=== PATIENT | female | born 1955 | race Caucasian/White ===

== ENCOUNTER → 2017-09-04 | Outpatient (CLI) | payer MEDICARE, OTHER ==
[~2017-09-04] MED LIST: ? BP MED; ALBU90OI INH; AMOX500 PO; ATEN100 PO; DOXY100 PO; HYDACE5 PO; HYDACE5325 PO; HYDCHL12.5; HYDCHL12.5 PO; IBUHYD; IBUHYD PO; IBUP200; LISI10; LISI10 PO; LISI20 PO; LISI5 PO; META800 PO; METO100ER; METO100ER PO; Norco 7.5-3251 EACH PO; OMEP20ER PO; PRED20 PO; Percocet 5-3251 EACH PO; RXHYDACE PO; TIZANIDINE HCL4 MG PO
[2017-09-04 11:31] LABS: Source, Urine Clean Catch
[2017-09-04 12:23] LABS: Appearance, Urine Turbid (Clear); Bilirubin, Urine Neg (Neg); Blood, Urine 5+ (Neg); Color, Urine Yellow (P-Yellow); Glucose Qualitative, Urine Neg (Neg); Ketones, Urine Neg (Neg); Leukocyte Esterase, Urine 3+ (Neg); Nitrite, Urine Pos (Neg); Protein, Urine 3+ (Neg); Urobilinogen, Urine NORM (Normal)
[2017-09-04 12:55] LABS: Amorphous Light (0-Heavy); Bacteria Many /hpf; Squamous Epithelial Cells Few /hpf (Few)
== END | disposition home or self-care (01) ==
LOC: EDSTATUS 09:18 → LAB RH 11:30
DX: N39.0 Urinary tract infection, site not specified (principal); R31.9 Hematuria, unspecified
CPT/HCPCS: 81001; 87077; 87086; 87186

== ENCOUNTER → 2017-09-26 | Outpatient (CLI) | payer MEDICARE, OTHER ==
[2017-09-27 10:54] LABS: Candida species (DNA Probe) Negative (NEGATIVE); G. vaginalis (DNA Probe) Negative (NEGATIVE); T. vaginalis (DNA Probe) Negative (NEGATIVE)
== END | disposition home or self-care (01) ==
LOC: LAB 18:35 → LAB SHORT 18:35
PROVIDERS: Obstetrics & Gynecology
DX: N76.0 Acute vaginitis (principal)
CPT/HCPCS: 87480; 87510; 87660

== ENCOUNTER → 2017-10-19 | Outpatient (CLI) | payer MEDICARE, OTHER ==
[2017-10-19 19:40] LABS: Source, Urine Catheter
[2017-10-19 19:48] LABS: Bilirubin, Urine Neg (Neg); Blood, Urine 5+ (Neg); Glucose Qualitative, Urine Neg (Neg); Ketones, Urine Neg (Neg); Leukocyte Esterase, Urine 2+ (Neg); Nitrite, Urine Pos (Neg); Protein, Urine 1+ (Neg); Specific Gravity, Urine 1.025 (1.003-1.022); Urobilinogen, Urine NORM (Normal)
[2017-10-19 19:59] LABS: Appearance, Urine Hazy (Clear); Color, Urine Yellow (P-Yellow)
[2017-10-19 20:00] LABS: Squamous Epithelial Cells Few /hpf (Few)
[2017-10-19 20:01] LABS: Bacteria Many /hpf; Mucus Light (0-Heavy)
== END | disposition home or self-care (01) ==
LOC: EDSTATUS 14:50 → LAB RH 18:45
DX: N39.0 Urinary tract infection, site not specified (principal)
CPT/HCPCS: 81001; 87077; 87086; 87186

== ENCOUNTER 2018-04-27 17:58 | Emergency (ER) | payer MEDICARE, OTHER ==
[~2018-04-27] VITALS: Ht 167.6 cm; Wt 90.7 kg
[2018-04-27] MEDS ORDERED: Ultram50 MG PO (19:05)
== END 2018-04-27 19:30 | disposition home or self-care (01) ==
LOC: ER 17:58
DX: S93.401A Sprain of unspecified ligament of right ankle, initial encounter (principal); M25.561 Pain in right knee; M79.671 Pain in right foot; I10 Essential (primary) hypertension; Z86.73 Personal history of transient ischemic attack (TIA), and cerebral infarction without residual deficits; Z87.891 Personal history of nicotine dependence; X58.XXXA Exposure to other specified factors, initial encounter
CPT/HCPCS: 73562-RT; 73610; 73630; 99283-25

== ENCOUNTER → 2018-06-03 | Outpatient (CLI) | payer MEDICARE, OTHER ==
[~2018-06-03] MED LIST changes: +Ultram50 MG PO
[2018-06-03 15:50] LABS: Bilirubin, Urine Neg (Neg); Blood, Urine 1+ (Neg); Glucose Qualitative, Urine Neg (Neg); Ketones, Urine Neg (Neg); Leukocyte Esterase, Urine 3+ (Neg); Nitrite, Urine Neg (Neg); Protein, Urine 1+ (Neg); Urobilinogen, Urine NORM (Normal)
[2018-06-03 16:03] LABS: Appearance, Urine Cloudy (Clear); Color, Urine Yellow (P-Yellow)
[2018-06-03 16:04] LABS: Squamous Epithelial Cells Mod /hpf (Few); White Blood Cells, Urine 25-50 /hpf (0-5)
[2018-06-03 16:06] LABS: Amorphous Light (0-Heavy); Bacteria Mod /hpf; Red Blood Cells, Urine 0-2 /hpf (0-2)
== END | disposition home or self-care (01) ==
LOC: LAB 15:08 → LAB SHORT 15:08
DX: N39.0 Urinary tract infection, site not specified (principal)
CPT/HCPCS: 81001

== ENCOUNTER 2018-06-15 11:58 | Emergency (ER) | payer MEDICARE, OTHER ==
[~2018-06-15] VITALS: Ht 170.2 cm; Wt 95.2 kg
== END 2018-06-15 14:38 | disposition home or self-care (01) ==
LOC: ER 11:58
DX: S51.011A Laceration without foreign body of right elbow, initial encounter (principal); I10 Essential (primary) hypertension; Z88.5 Allergy status to narcotic agent; Z88.8 Allergy status to other drugs, medicaments and biological substances; Z79.899 Other long term (current) drug therapy; Z86.73 Personal history of transient ischemic attack (TIA), and cerebral infarction without residual deficits; Z87.891 Personal history of nicotine dependence; X58.XXXA Exposure to other specified factors, initial encounter
CPT/HCPCS: 12004; 99283-25

== ENCOUNTER 2018-10-04 18:52 | Observation (INO) | payer MEDICARE, OTHER ==
[~2018-10-04] VITALS: Ht 170.2 cm; Wt 95.2 kg
[2018-10-04 19:19] LABS: Source, Urine Catheter
[2018-10-04 19:22] LABS: Bilirubin, Urine Neg (Neg); Blood, Urine Neg (Neg); Glucose Qualitative, Urine Neg (Neg); Ketones, Urine 1+ (Neg); Leukocyte Esterase, Urine 2+ (Neg); Nitrite, Urine Pos (Neg); Protein, Urine Neg (Neg); Urobilinogen, Urine NORM (Normal)
[2018-10-04 19:31] LABS: Appearance, Urine Cloudy (Clear); Color, Urine Yellow (P-Yellow)
[2018-10-04 19:32] LABS: Bacteria Many /hpf; Red Blood Cells, Urine 0-2 /hpf (0-2); Squamous Epithelial Cells Mod /hpf (Few)
[2018-10-04 20:45] LABS: BASOPHILS ABSOLUTE AUTO 0.04 K/mm3 (0.00-0.23); BASOPHILS PERCENT AUTO 0 % (0-2); EOSINOPHILS ABSOLUTE AUTO 0.16 K/mm3 (0.00-0.68); EOSINOPHILS PERCENT AUTO 1 % (0-6); Hematocrit 46.7 % (33.0-51.0); Hemoglobin 14.9 g/dL (11.5-16.0); IMMATURE GRAN ABSOLUTE AUTO 0.06 K/mm3 (0.00-0.10); IMMATURE GRAN PERCENT AUTO 1 % (0-1); LYMPHOCYTES ABSOLUTE AUTO 0.53 K/mm3 (0.84-5.20); LYMPHOCYTES PERCENT AUTO 5 % (21-46); MONOCYTES ABSOLUTE AUTO 0.52 K/mm3 (0.16-1.47); MONOCYTES PERCENT AUTO 4 % (4-13); Mean Corpuscular HGB 30.5 pg (26.0-34.0); Mean Corpuscular HGB Conc 31.9 g/dL (31.5-36.5); Mean Corpuscular Volume 96 fL (80-100); Mean Platelet Volume 10.4 fL (9.1-12.4); NEUTROPHILS ABSOLUTE AUTO 10.47 K/mm3 (1.96-9.15); NEUTROPHILS PERCENT AUTO 89 % (41-73); Platelet Count 171 K/mm3 (150-400); RDW Coefficient Variation 12.6 % (11.7-14.2); RDW Standard Deviation 44.8 fL (35.1-46.3); Red Blood Cell Count 4.89 M/mm3 (3.80-5.20); White Blood Cell Count 11.78 K/mm3 (4.00-11.30)
[2018-10-04 21:04] LABS: Alanine Aminotransfer (ALT/SGP 48 U/L (12-78); Albumin, Blood 3.4 g/dL (3.4-5.0); Albumin/Globulin Ratio 1.1 (0.8-1.8); Alk Phos 150 U/L (50-136); Anion Gap 5 mmol/L (6-16); Aspartate Aminotrans (AST/SGOT 77 U/L (12-37); Blood Urea Nitrogen 11 mg/dL (8-24); Bun/Creatinine Ratio 14.6 (12.0-20.0); CO2, Blood 30 mmol/L (21-32); Calcium, Blood 9.2 mg/dL (8.5-10.1); Chloride, Blood 106 mmol/L (98-108); Creatinine, Blood 0.75 mg/dL (0.40-1.00); Globulin, Blood 3.2 g/dL (2.2-4.0); Glomerular Filtration Rate >60 (60-); Glucose, Blood 120 mg/dL (70-99); Potassium, Blood 4.2 mmol/L (3.5-5.5); Sodium, Blood 141 mmol/L (136-145); Total Protein, Blood 6.6 g/dL (6.4-8.2)
[2018-10-04] MEDS ORDERED: ATEN50 PO (22:40)
[2018-10-04] MEDS ORDERED: Aspirin EC81 MG PO (22:40)
[2018-10-04] MEDS ORDERED: FAMO20 PO (22:41)
[2018-10-04] MEDS ORDERED: ESTRADIOL (22:41)
[2018-10-04] MEDS ORDERED: Prozac20 MG (22:42)
[2018-10-04] MEDS ORDERED: Zocor20 MG (22:43)
[2018-10-04] MEDS ORDERED: MAGNESIUM400 M1 PO (22:43)
[2018-10-04] MEDS ORDERED: HYDR1TAB94 (22:43)
[2018-10-05 05:19] LABS: BASOPHILS ABSOLUTE AUTO 0.04 K/mm3 (0.00-0.23); BASOPHILS PERCENT AUTO 0 % (0-2); EOSINOPHILS ABSOLUTE AUTO 0.03 K/mm3 (0.00-0.68); EOSINOPHILS PERCENT AUTO 0 % (0-6); Hematocrit 40.6 % (33.0-51.0); Hemoglobin 13.1 g/dL (11.5-16.0); IMMATURE GRAN ABSOLUTE AUTO 0.03 K/mm3 (0.00-0.10); IMMATURE GRAN PERCENT AUTO 0 % (0-1); LYMPHOCYTES ABSOLUTE AUTO 0.92 K/mm3 (0.84-5.20); LYMPHOCYTES PERCENT AUTO 10 % (21-46); MONOCYTES PERCENT AUTO 6 % (4-13); Mean Corpuscular HGB 30.3 pg (26.0-34.0); Mean Corpuscular HGB Conc 32.3 g/dL (31.5-36.5); Mean Corpuscular Volume 94 fL (80-100); Mean Platelet Volume 9.9 fL (9.1-12.4); NEUTROPHILS ABSOLUTE AUTO 8.02 K/mm3 (1.96-9.15); NEUTROPHILS PERCENT AUTO 83 % (41-73); Platelet Count 159 K/mm3 (150-400); RDW Coefficient Variation 12.7 % (11.7-14.2); RDW Standard Deviation 43.7 fL (35.1-46.3); Red Blood Cell Count 4.33 M/mm3 (3.80-5.20); White Blood Cell Count 9.64 K/mm3 (4.00-11.30)
--- NOTE | 2018-10-05 05:54 | NUR ---
SHIFT SUMMARY: PATIENT ARRIVED TO THE FLOOR VIA [facility], WE ASSISTED WITH TRANSFER TO THE BED. IV WAS NOTED TO BE LOOSE AND HANGING OUT. TRIED TO FLUSH BUT IT CAUSED PAIN. THEREFORE RESTARTED THE IV A LITTLE ABOVE THE OTHER AREA IN THE LEFT SHOULDER. SHE CAME INTO THE ER FOR NAUSEA AND VOMITING, IT TURNED OUT SHE HAD AN TUBAL ABCESS. ADMITTED FOR THE ABCESS AND POSSIBLY FOR REMOVAL OF THIS. SHE IS AOX3 PLEASANT AND COOPERATIVE, HAS DYSPHAGIA AND IS DIFFICULT TO UNDERSTAND FROM A PREVIOUS STROKE. SHE HAS DIFFICULTY GETTING OUT WHAT SHE HAS TO SAY. BUT IS ALERT AND ORIENTED. SHE COMPLAINED OF PAIN ON HER RIGHT SIDE. AFTER NEW IV WAS STARTED GAVE HER 25 OF FENTANYL PER DOCTOR WILBERT ORDERS. THIS GOT RID OF HER PAIN, IV WAS STARTED WITH ANTIBOTICS AND FLUIDS. SHE SLEPT THE REST OF THE NIGHT, SEE ASSESSEMENT FOR DETAIL. WILL REPORT TO DAY SHIFT RN.
[2018-10-05 06:04] LABS: Alanine Aminotransfer (ALT/SGP 34 U/L (12-78); Albumin, Blood 2.6 g/dL (3.4-5.0); Albumin/Globulin Ratio 0.8 (0.8-1.8); Alk Phos 122 U/L (50-136); Anion Gap 6 mmol/L (6-16); Aspartate Aminotrans (AST/SGOT 55 U/L (12-37); Bilirubin, Total 0.9 mg/dL (0.1-1.0); Blood Urea Nitrogen 11 mg/dL (8-24); Bun/Creatinine Ratio 16.5 (12.0-20.0); CO2, Blood 26 mmol/L (21-32); Chloride, Blood 109 mmol/L (98-108); Creatinine, Blood 0.67 mg/dL (0.40-1.00); Globulin, Blood 3.1 g/dL (2.2-4.0); Glomerular Filtration Rate >60 (60-); Glucose, Blood 97 mg/dL (70-99); Potassium, Blood 3.4 mmol/L (3.5-5.5); Sodium, Blood 141 mmol/L (136-145); Total Protein, Blood 5.7 g/dL (6.4-8.2)
[2018-10-05] MEDS ORDERED: IBUP600 PO (16:18)
[2018-10-05] MEDS ORDERED: Percocet 5-3251 EACH PO (16:18)
[2018-10-05] MEDS ORDERED: METR500 PO (16:19)
[2018-10-05] MEDS ORDERED: CEPH500 PO (16:19)
[2018-10-05] MEDS ORDERED: VITAMIN D5000 UNIT PO (16:21)
[2018-10-05] MEDS ORDERED: CALCIUM 600 +1 EA11 PO (16:22)
[2018-10-05] MEDS ORDERED: VITAMIN B-1100 MG PO (16:22)
--- NOTE | 2018-10-05 18:32 | NUR ---
DISCHARGE PT RETURNING TO [facility] VIA [facility]. ORDERS FAXED TO [facility] AND ARE ALSO BEING SENT WITH THE PT. HARD COPY SCRIPS FOR PERCOCETT, IBUPROFEN, KEFLEX AND FLAGYL ALSO SENT WITH PT. REVIEWED DISCHARGE INSTRUCTIONS, FOLLOW UP APPOINTMENTS AND MEDICATIONS WITH PT. PT INDICATED UNDERSTANDING BUT SHE IS ALSO VERY FORGETFUL. OUTPT PELVIC ULTRASOUND ORDER SENT TO [facility] FOR SCHEDULING.
--- NOTE | 2018-10-05 19:57 | NUR ---
10/05/181919 [facility] HERE FOR PICK-UP. PT HAS BELONGINGS AND TECH GIVEN PT DISCHARGE PAPERWORK. PT LEFT VIA W/C.
== END 2018-10-05 19:20 | disposition home or self-care (01) ==
LOC: ER 18:52 → MEDS 22:52
PROVIDERS: Emergency Medicine; ADMIT Obstetrics & Gynecology
DX: N39.0 Urinary tract infection, site not specified (principal); N83.8 Other noninflammatory disorders of ovary, fallopian tube and broad ligament; I10 Essential (primary) hypertension; Z86.73 Personal history of transient ischemic attack (TIA), and cerebral infarction without residual deficits; Z87.891 Personal history of nicotine dependence; Z88.5 Allergy status to narcotic agent; Z88.8 Allergy status to other drugs, medicaments and biological substances; Z79.82 Long term (current) use of aspirin; Z79.899 Other long term (current) drug therapy
CPT/HCPCS: 36415; 71046; 74177; 80053; 81001; 83605; 83690; 85025; 86304; 87077; 87086; 87186; 93005; 93010; 96365-59; 96366; 96375-59; 99285-25; G0378; J0696; J2405; J3010; J7030; P9612; Q9967

== ENCOUNTER → 2019-08-10 | Outpatient (CLI) | payer MEDICARE, OTHER ==
[~2019-08-10] MED LIST changes: +ATEN50 PO; +Aspirin EC81 MG PO; +CALCIUM 600 +1 EA11 PO; +CEPH500 PO; +ESTRADIOL; +FAMO20 PO; +HYDR1TAB94; +IBUP600 PO; +MAGNESIUM400 M1 PO; +METR500 PO; +Prozac20 MG; +VITAMIN B-1100 MG PO; +VITAMIN D5000 UNIT PO; +Zocor20 MG
[2019-08-11 15:06] LABS: Source, Urine Clean Catch
[2019-08-11 16:19] LABS: Bilirubin, Urine Neg (Neg); Blood, Urine 1+ (Neg); Glucose Qualitative, Urine Neg (Neg); Ketones, Urine Neg (Neg); Leukocyte Esterase, Urine 3+ (Neg); Nitrite, Urine Pos (Neg); Protein, Urine Neg (Neg); Urobilinogen, Urine NORM (Normal)
[2019-08-11 16:28] LABS: Appearance, Urine Hazy (Clear); Color, Urine Yellow (P-Yellow)
[2019-08-11 16:30] LABS: Bacteria Many /hpf; Red Blood Cells, Urine 0-2 /hpf (0-2); Squamous Epithelial Cells Many /hpf (Few)
== END | disposition home or self-care (01) ==
LOC: LAB 14:25 → LAB SHORT 14:25
DX: N39.0 Urinary tract infection, site not specified (principal)
CPT/HCPCS: 81001; 87077; 87086; 87186

== ENCOUNTER 2020-04-05 09:55 | Emergency (ER) | payer MEDICARE, OTHER ==
[~2020-04-05] VITALS: Ht 170.2 cm; Wt 81.7 kg
[2020-04-05 11:55] LABS: Influenza A, PCR Negative (NEGATIVE); Influenza B, PCR Negative (NEGATIVE); Resp Syncytial Virus, PCR Negative (NEGATIVE); SARS-Cov-2 (COVID-19) PCR, MMC Negative (NEGATIVE)
[2020-04-05] MEDS ORDERED: NEURONTIN300 MG PO (13:55)
== END 2020-04-05 13:20 | disposition home or self-care (01) ==
LOC: ER 09:55
PROVIDERS: Emergency Medicine
DX: J02.9 Acute pharyngitis, unspecified (principal); I10 Essential (primary) hypertension; I69.351 Hemiplegia and hemiparesis following cerebral infarction affecting right dominant side; Z20.822 Contact with and (suspected) exposure to COVID-19; Z88.5 Allergy status to narcotic agent; Z88.8 Allergy status to other drugs, medicaments and biological substances; Z79.82 Long term (current) use of aspirin; Z79.899 Other long term (current) drug therapy
CPT/HCPCS: 0241U; 87081; 87430; 99284

== ENCOUNTER 2020-08-02 14:51 | Emergency (ER) | payer MEDICARE, OTHER ==
[~2020-08-02] VITALS: Ht 170.2 cm; Wt 113.4 kg
[~2020-08-02 14:51] MED LIST changes: +NEURONTIN300 MG PO
[2020-08-02] MEDS ORDERED: BUME2 PO (15:08)
[2020-08-02] MEDS ORDERED: Prozac40 MG PO (15:09)
[2020-08-02] MEDS ORDERED: Norco 5-325 Ta1 EACH PO (15:09)
[2020-08-02] MEDS ORDERED: GABA300 PO (15:09)
[2020-08-02] MEDS ORDERED: PAROEX473 ML (15:09)
[2020-08-02] MEDS ORDERED: ZOCOR20 MG PO (15:10)
[2020-08-02] MEDS ORDERED: MAGNESIUM OXID500 MG PO (15:10)
[2020-08-02] MEDS ORDERED: POTA10T PO (15:10)
[2020-08-02] MEDS ORDERED: VITB2 PO (15:11)
[2020-08-02] MEDS ORDERED: CALMOSEPTINE OINT (15:12)
[2020-08-02] MEDS ORDERED: NYAMYC15 G1 (15:12)
[2020-08-02] MEDS ORDERED: CLOTRIMAZOLE AF1524 TOP (16:32)
[2020-08-02] MEDS ORDERED: Diflucan150 MG PO (16:32)
== END 2020-08-02 17:29 | disposition home or self-care (01) ==
LOC: ER 14:51
DX: B37.2 Candidiasis of skin and nail (principal); I10 Essential (primary) hypertension; Z79.82 Long term (current) use of aspirin; Z79.899 Other long term (current) drug therapy; Z86.73 Personal history of transient ischemic attack (TIA), and cerebral infarction without residual deficits; Z87.891 Personal history of nicotine dependence
CPT/HCPCS: 99282; A9270

== ENCOUNTER 2020-10-02 14:50 | Emergency (ER) | payer MEDICARE, OTHER ==
[~2020-10-02] VITALS: Ht 170.2 cm; Wt 119.8 kg
[~2020-10-02 14:50] MED LIST changes: +BUME2 PO; +CALMOSEPTINE OINT; +CLOTRIMAZOLE AF1524 TOP; +Diflucan150 MG PO; +GABA300 PO; +MAGNESIUM OXID500 MG PO; +NYAMYC15 G1; +Norco 5-325 Ta1 EACH PO; +PAROEX473 ML; +POTA10T PO; +Prozac40 MG PO; +VITB2 PO; +ZOCOR20 MG PO
[2020-10-02] MEDS ORDERED: FAMO20 PO (15:01)
[2020-10-02 15:44] LABS: BASOPHILS ABSOLUTE AUTO 0.04 K/mm3 (0.00-0.23); BASOPHILS PERCENT AUTO 0 % (0-2); EOSINOPHILS ABSOLUTE AUTO 0.09 K/mm3 (0.00-0.68); EOSINOPHILS PERCENT AUTO 1 % (0-6); Hematocrit 40.3 % (33.0-51.0); Hemoglobin 13.7 g/dL (11.5-16.0); IMMATURE GRAN ABSOLUTE AUTO 0.06 K/mm3 (0.00-0.10); IMMATURE GRAN PERCENT AUTO 1 % (0-1); LYMPHOCYTES ABSOLUTE AUTO 1.04 K/mm3 (0.84-5.20); LYMPHOCYTES PERCENT AUTO 8 % (21-46); MONOCYTES PERCENT AUTO 5 % (4-13); Mean Corpuscular HGB 37.8 pg (26.0-34.0); Mean Corpuscular Volume 111 fL (80-100); Mean Platelet Volume 10.6 fL (9.1-12.4); NEUTROPHILS ABSOLUTE AUTO 11.34 K/mm3 (1.96-9.15); NEUTROPHILS PERCENT AUTO 86 % (41-73); Platelet Count 167 K/mm3 (150-400); RDW Coefficient Variation 15.4 % (11.7-14.2); RDW Standard Deviation 64.1 fL (35.1-46.3); Red Blood Cell Count 3.62 M/mm3 (3.80-5.20); White Blood Cell Count 13.17 K/mm3 (4.00-11.30)
[2020-10-02 15:58] LABS: Alanine Aminotransfer (ALT/SGP 171 U/L (12-78); Albumin, Blood 2.1 g/dL (3.4-5.0); Albumin/Globulin Ratio 0.7 (0.8-1.8); Alk Phos 202 U/L (50-136); Anion Gap 4 mmol/L (6-16); Aspartate Aminotrans (AST/SGOT 415 U/L (12-37); Bilirubin, Total 5.5 mg/dL (0.1-1.0); Blood Urea Nitrogen 12 mg/dL (8-24); Bun/Creatinine Ratio 18.4 (12.0-20.0); CO2, Blood 34 mmol/L (21-32); Calcium, Blood 8.6 mg/dL (8.5-10.1); Chloride, Blood 104 mmol/L (98-108); Creatinine, Blood 0.65 mg/dL (0.40-1.00); Globulin, Blood 3.2 g/dL (2.2-4.0); Glomerular Filtration Rate >60 (60-); Glucose, Blood 97 mg/dL (70-99); Potassium, Blood 2.9 mmol/L (3.5-5.5); Sodium, Blood 142 mmol/L (136-145); Total Protein, Blood 5.3 g/dL (6.4-8.2)
[2020-10-02 16:48] LABS: SARS-Cov-2 (COVID-19) PCR, MMC NEGATIVE (NEGATIVE)
[2020-10-02 17:14] LABS: Source, Urine Catheter
[2020-10-02 17:20] LABS: Appearance, Urine Clear (Clear); Blood, Urine 2+ (Neg); Color, Urine Yellow (P-Yellow); Glucose Qualitative, Urine Neg (Neg); Ketones, Urine 1+ (Neg); Leukocyte Esterase, Urine 2+ (Neg); Nitrite, Urine Pos (Neg); Protein, Urine 2+ (Neg); Specific Gravity, Urine 1.025 (1.003-1.022); Urobilinogen, Urine 4+ (Normal)
[2020-10-02 17:29] LABS: Bilirubin, Urine 3+ (Neg)
[2020-10-02 17:32] LABS: Bacteria Many /hpf; Squamous Epithelial Cells Mod /hpf (Few); White Blood Cells, Urine 50-100 /hpf (0-5)
[2020-10-02] MEDS ORDERED: CEPH500 PO (18:59)
[2020-10-02] MEDS ORDERED: METO10 PO (18:59)
== END 2020-10-02 19:29 | disposition home or self-care (01) ==
LOC: ER 14:50
PROVIDERS: Emergency Medicine
DX: N39.0 Urinary tract infection, site not specified (principal); K75.9 Inflammatory liver disease, unspecified; I10 Essential (primary) hypertension; Z88.5 Allergy status to narcotic agent; Z88.1 Allergy status to other antibiotic agents; Z88.8 Allergy status to other drugs, medicaments and biological substances; Z79.82 Long term (current) use of aspirin
CPT/HCPCS: 74176; 80053; 81001; 83690; 85025; 87077; 87086; 87186; 93005; 93010; 96372; 99284-25; J0696; J2270; J2765; P9612; U0004

== ENCOUNTER 2020-10-09 00:35 | Emergency (ER) | payer MEDICARE, OTHER ==
[~2020-10-09] VITALS: Ht 167.6 cm; Wt 113.4 kg
[~2020-10-09 00:35] MED LIST changes: +METO10 PO
[2020-10-09] MEDS ORDERED: NYSTRIT TOP (05:16)
== END 2020-10-09 06:27 | disposition home or self-care (01) ==
LOC: ER 00:35
DX: B37.3 Candidiasis of vulva and vagina (principal); I10 Essential (primary) hypertension; Z79.82 Long term (current) use of aspirin; Z88.5 Allergy status to narcotic agent; Z88.8 Allergy status to other drugs, medicaments and biological substances; Z88.1 Allergy status to other antibiotic agents; Z79.899 Other long term (current) drug therapy; Z87.891 Personal history of nicotine dependence
CPT/HCPCS: 99283; A9270

== ENCOUNTER → 2020-10-22 | Outpatient (CLI) | payer MEDICARE, OTHER ==
[~2020-10-22] MED LIST changes: +NYSTRIT TOP
== END | disposition home or self-care (01) ==
LOC: LAB 14:00 → LAB SHORT 14:00
DX: E87.6 Hypokalemia (principal)
CPT/HCPCS: 84132

== ENCOUNTER 2021-04-18 17:34 | Emergency (ER) | payer MEDICARE, OTHER ==
[~2021-04-18] VITALS: Ht 162.6 cm; Wt 97.5 kg
[2021-04-18 18:19] LABS: BASOPHILS ABSOLUTE AUTO 0.11 K/mm3 (0.00-0.23); BASOPHILS PERCENT AUTO 2 % (0-2); EOSINOPHILS ABSOLUTE AUTO 0.56 K/mm3 (0.00-0.68); EOSINOPHILS PERCENT AUTO 9 % (0-6); Hematocrit 51.9 % (33.0-51.0); Hemoglobin 16.7 g/dL (11.5-16.0); IMMATURE GRAN ABSOLUTE AUTO 0.01 K/mm3 (0.00-0.10); IMMATURE GRAN PERCENT AUTO 0 % (0-1); LYMPHOCYTES ABSOLUTE AUTO 2.23 K/mm3 (0.84-5.20); LYMPHOCYTES PERCENT AUTO 36 % (21-46); MONOCYTES ABSOLUTE AUTO 0.56 K/mm3 (0.16-1.47); MONOCYTES PERCENT AUTO 9 % (4-13); Mean Corpuscular HGB 35.2 pg (26.0-34.0); Mean Corpuscular HGB Conc 32.2 g/dL (31.5-36.5); Mean Corpuscular Volume 110 fL (80-100); Mean Platelet Volume 10.2 fL (9.1-12.4); NEUTROPHILS ABSOLUTE AUTO 2.76 K/mm3 (1.96-9.15); NEUTROPHILS PERCENT AUTO 44 % (41-73); Platelet Count 246 K/mm3 (150-400); RDW Coefficient Variation 13.8 % (11.7-14.2); RDW Standard Deviation 57.1 fL (35.1-46.3); Red Blood Cell Count 4.74 M/mm3 (3.80-5.20); White Blood Cell Count 6.23 K/mm3 (4.00-11.30)
[2021-04-18 19:05] LABS: Alanine Aminotransfer (ALT/SGP 35 U/L (12-78); Albumin, Blood 3.1 g/dL (3.4-5.0); Albumin/Globulin Ratio 0.8 (0.8-1.8); Alk Phos 152 U/L (50-136); Anion Gap 7 mmol/L (6-16); Aspartate Aminotrans (AST/SGOT 65 U/L (12-37); Bilirubin, Total 0.8 mg/dL (0.1-1.0); Blood Urea Nitrogen 7 mg/dL (8-24); Bun/Creatinine Ratio 14.4 (12.0-20.0); CO2, Blood 25 mmol/L (21-32); Calcium, Blood 8.8 mg/dL (8.5-10.1); Chloride, Blood 107 mmol/L (98-108); Creatinine, Blood 0.49 mg/dL (0.40-1.00); Globulin, Blood 4.1 g/dL (2.2-4.0); Glomerular Filtration Rate >60 (60-); Glucose, Blood 75 mg/dL (70-99); Potassium, Blood 4.8 mmol/L (3.5-5.5); Sodium, Blood 139 mmol/L (136-145); Total Protein, Blood 7.2 g/dL (6.4-8.2)
== END 2021-04-18 23:28 | disposition home or self-care (01) ==
LOC: ER 17:34
PROVIDERS: Physician Assistant
DX: M79.89 Other specified soft tissue disorders (principal); M79.604 Pain in right leg; I10 Essential (primary) hypertension; Z86.73 Personal history of transient ischemic attack (TIA), and cerebral infarction without residual deficits; Z88.5 Allergy status to narcotic agent; Z88.0 Allergy status to penicillin; Z88.8 Allergy status to other drugs, medicaments and biological substances; Z79.899 Other long term (current) drug therapy; Z87.891 Personal history of nicotine dependence; Z79.891 Long term (current) use of opiate analgesic; Z79.82 Long term (current) use of aspirin
CPT/HCPCS: 80053; 85025; A9270

== ENCOUNTER 2021-05-25 21:54 | Emergency (ER) | payer MEDICARE, OTHER ==
[~2021-05-25] VITALS: Ht 172.7 cm; Wt 113.4 kg
[2021-11-29] MEDS ORDERED: ACET500 PO (06:26)
[2021-11-29] MEDS ORDERED: IBUP400 PO (06:26)
[2021-11-29] MEDS ORDERED: Robaxin750 MG PO (06:26)
== END 2021-05-26 00:51 | disposition home or self-care (01) ==
LOC: ER 21:54
DX: T24.111A Burn of first degree of right thigh, initial encounter (principal); I10 Essential (primary) hypertension; Z87.891 Personal history of nicotine dependence; Z88.5 Allergy status to narcotic agent; Z79.899 Other long term (current) drug therapy
CPT/HCPCS: 99283

== ENCOUNTER 2021-06-30 13:00 | Day surgery (SDC) | payer MEDICARE, OTHER ==
[~2021-06-30] VITALS: Ht 170.2 cm; Wt 102.0 kg
== END 2021-06-30 14:47 | disposition home or self-care (01) ==
LOC: ORSCSDS 13:00
PROVIDERS: Ophthalmology
PROC: 08RK3JZ Replacement of Left Lens with Synthetic Substitute, Percutaneous Approach (ICD-10-PCS; principal; 2021-06-30 14:15)
DX: H25.13 Age-related nuclear cataract, bilateral (principal); I10 Essential (primary) hypertension; Z87.891 Personal history of nicotine dependence; I69.320 Aphasia following cerebral infarction; Z79.899 Other long term (current) drug therapy; Z79.82 Long term (current) use of aspirin
CPT/HCPCS: J2001; J2250; J3010; J3301; J7040; V2632

== ENCOUNTER 2021-07-21 08:55 | Day surgery (SDC) | payer MEDICARE, OTHER ==
[~2021-07-21] VITALS: Ht 172.7 cm; Wt 102.2 kg
--- NOTE | 2021-07-21 09:23 | NUR ---
07/21/21 0923 Silvana Ha CALL LIGHT WITHIN REACH. TETRACAINE AT 0910 PLEDGETT AT 0912 IN THE RIDHT EYE
== END 2021-07-21 10:28 | disposition home or self-care (01) ==
LOC: ORSCSDS 08:55
PROVIDERS: Ophthalmology
PROC: 08RJ3JZ Replacement of Right Lens with Synthetic Substitute, Percutaneous Approach (ICD-10-PCS; principal; 2021-07-21 10:00)
DX: H25.11 Age-related nuclear cataract, right eye (principal); Z87.891 Personal history of nicotine dependence; F32.A Depression, unspecified; E78.5 Hyperlipidemia, unspecified; Z86.73 Personal history of transient ischemic attack (TIA), and cerebral infarction without residual deficits; G47.00 Insomnia, unspecified; I10 Essential (primary) hypertension; I63.9 Cerebral infarction, unspecified; F41.9 Anxiety disorder, unspecified; F03.90 Unspecified dementia, unspecified severity, without behavioral disturbance, psychotic disturbance, mood disturbance, and anxiety; E66.9 Obesity, unspecified; Z68.34 Body mass index [BMI] 34.0-34.9, adult; Z79.82 Long term (current) use of aspirin; Z79.899 Other long term (current) drug therapy
CPT/HCPCS: J2001; J2250; J3010; J3301; J7040; V2632

== ENCOUNTER 2021-11-20 20:23 | Emergency (ER) | payer MEDICARE, OTHER ==
[~2021-11-20] VITALS: Ht 177.8 cm; Wt 95.2 kg
[2021-11-20] MEDS ORDERED: HYDR1TAB94 PO (21:38)
== END 2021-11-20 22:53 | disposition home or self-care (01) ==
LOC: ER 20:23
DX: S42.211A Unspecified displaced fracture of surgical neck of right humerus, initial encounter for closed fracture (principal); X58.XXXA Exposure to other specified factors, initial encounter; I69.351 Hemiplegia and hemiparesis following cerebral infarction affecting right dominant side; I69.320 Aphasia following cerebral infarction; F03.90 Unspecified dementia, unspecified severity, without behavioral disturbance, psychotic disturbance, mood disturbance, and anxiety; I10 Essential (primary) hypertension; Z88.1 Allergy status to other antibiotic agents; Z88.5 Allergy status to narcotic agent; Z88.0 Allergy status to penicillin; Z88.8 Allergy status to other drugs, medicaments and biological substances; Z79.899 Other long term (current) drug therapy; Z79.2 Long term (current) use of antibiotics
CPT/HCPCS: 73030; A9270

== ENCOUNTER 2021-11-30 16:16 | Observation (INO) | payer MEDICARE, OTHER ==
[~2021-11-30] VITALS: Ht 162.6 cm; Wt 101.4 kg
[~2021-11-30 16:16] MED LIST changes: +ACET500 PO; +HYDR1TAB94 PO; +IBUP400 PO; +Robaxin750 MG PO
[2021-11-30] MEDS ORDERED: HYDR1TAB94 PO (20:26)
[2021-11-30 23:09] LABS: Hematocrit 34.7 % (33.0-51.0); Hemoglobin 11.5 g/dL (11.5-16.0); Mean Corpuscular HGB 31.1 pg (26.0-34.0); Mean Corpuscular HGB Conc 33.1 g/dL (31.5-36.5); Mean Corpuscular Volume 94 fL (80-100); Mean Platelet Volume 9.6 fL (9.1-12.4); Platelet Count 199 K/mm3 (150-400); RDW Standard Deviation 47.8 fL (35.1-46.3); White Blood Cell Count 10.29 K/mm3 (4.00-11.30)
[2021-11-30 23:24] LABS: Bun/Creatinine Ratio 34.9 (12.0-20.0); Calcium, Blood 8.5 mg/dL (8.5-10.1); Creatinine, Blood 0.57 mg/dL (0.40-1.00); Potassium, Blood 3.9 mmol/L (3.5-5.5)
[2021-11-30] MEDS ORDERED: DISU250 PO (23:54)
[2021-11-30] MEDS ORDERED: ACET325 PO (23:59)
[2021-12-01] MEDS ORDERED: MYLANTA MAXIMUM10 ML PO (00:04)
--- NOTE | 2021-12-01 06:38 | NUR ---
SHIFT SUMMARY PATIENT ALERT AND ORIENTED X 2-3. SOME SLIGHT CONFUSION NOTED. PATIENT MEDICATED ONCE PER EMAR FOR PAIN. NO ACUTE ISSUES NOTED OVERNIGHT. CALL LIGHT WITHIN REACH. REPORT GIVEN TO ONCOMING RN.
--- NOTE | 2021-12-01 08:00 | NUR ---
pt laying in bed asking for pain meds, will medicate, a/ox2, pleasant and cooperative with care, follows commands well, reports pain in legs but can't really give a number for pain assessment, states it's bad, lungs are clear on r/a, resp even and unlabored, no cough noted, hrr, incont, briefs in place, iv to lac site is clear and patent, btx4, abd flat soft nontender, skin has bruising to narinder and left leg in immobilizer, moves arms slowly, shahab, call lght in reach.
[2021-12-01 11:45] LABS: Albumin, Blood 2.4 g/dL (3.4-5.0); Albumin/Globulin Ratio 0.8 (0.8-1.8); Bilirubin, Total 1.5 mg/dL (0.1-1.0); Bun/Creatinine Ratio 39.5 (12.0-20.0); Calcium, Blood 8.8 mg/dL (8.5-10.1); Creatinine, Blood 0.53 mg/dL (0.40-1.00); Potassium, Blood 4.4 mmol/L (3.5-5.5); Total Protein, Blood 5.4 g/dL (6.4-8.2)
--- NOTE | 2021-12-01 15:00 | NUR ---
Pt has manny tolbert t bedside symptom review pt staritng to have increased pain nurse in to medicate. Some itching physician contacted for benadryl. Review with niece plan of care and discussed help with out patient care and increased needs. Blayne lazaro pt has nora history of ETOH abuse and has been on antibuse for a month now. Review of possible plans of care going forward and pt will need increased care and support. Will follow up with physician and family on prognosis. Review of medication at her facility she has not had the antibuse suince the day before admission. Niece is unsure if she has had alcohol recently.
--- NOTE | 2021-12-01 15:10 | NUR ---
started pt on dilaudid for pain, she is resting easy at this time, was itching from the dilaudid, got a benadryl order but she is asleep os will monitor. call light in reach.
--- NOTE | 2021-12-01 18:45 | NUR ---
pt had a painful morning, but after pt given dilaudid she has rested quietly, was itching, and obtained an order for benadryl but she was sleeping when brought it to room, no further changes this shift. call light in reach.
--- NOTE | 2021-12-02 03:10 | NUR ---
CALL FROM DARCIE LAYNE AT [facility] REQUESTING UPDATE ON PT. ADVISED PT'S PAIN ONLY CONTROLLED WITH IV NARCOTICS AT THIS TIME AND FACILITY IS NOT SET UP TO ADMINISTER IV MEDICATIONS. DARCIE WILL CALL AGAIN TOMORROW EVENING FOR UPDATE UNLESS RN FROM FACILITY IS UPDATED FIRST.
--- NOTE | 2021-12-02 05:03 | NUR ---
INCIDENT RESPONSE SPECIALIST SUMMARY PT ALERT, THOUGH DROWSY, ORIENTED TO SELF, ONLY. VERY LITTLE VERBAL RESPONSE, ONLY SAYING, "ITCHY" AND "IT HURTS" WHILE POINTING AT IV SITE, WHICH APPEARS TO BE HAVING RXN TO ADHESIVE. PRN BENADRYL AND IV DILAUDID ADMINISTERED. SPOKE WITH THUY LAYNE, AT [facility] FOR UPDATE FOR WHICH SHE WILL PASS TO HER FACILITY RN. SLEPT MOST OF SHIFT. WILL REPORT TO ONCOMING RN.
[2021-12-02 05:13] LABS: BASOPHILS ABSOLUTE AUTO 0.08 K/mm3 (0.00-0.23); BASOPHILS PERCENT AUTO 1 % (0-2); EOSINOPHILS ABSOLUTE AUTO 1.31 K/mm3 (0.00-0.68); EOSINOPHILS PERCENT AUTO 13 % (0-6); Hematocrit 34.4 % (33.0-51.0); Hemoglobin 11.2 g/dL (11.5-16.0); IMMATURE GRAN ABSOLUTE AUTO 0.04 K/mm3 (0.00-0.10); IMMATURE GRAN PERCENT AUTO 0 % (0-1); LYMPHOCYTES PERCENT AUTO 14 % (21-46); MONOCYTES PERCENT AUTO 8 % (4-13); Mean Corpuscular HGB 30.4 pg (26.0-34.0); Mean Corpuscular HGB Conc 32.6 g/dL (31.5-36.5); Mean Corpuscular Volume 93 fL (80-100); Mean Platelet Volume 9.8 fL (9.1-12.4); NEUTROPHILS ABSOLUTE AUTO 6.15 K/mm3 (1.96-9.15); NEUTROPHILS PERCENT AUTO 63 % (41-73); Platelet Count 230 K/mm3 (150-400); RDW Coefficient Variation 14.1 % (11.7-14.2); RDW Standard Deviation 47.6 fL (35.1-46.3); Red Blood Cell Count 3.69 M/mm3 (3.80-5.20); White Blood Cell Count 9.78 K/mm3 (4.00-11.30)
[2021-12-02 05:41] LABS: Albumin, Blood 2.3 g/dL (3.4-5.0); Albumin/Globulin Ratio 0.7 (0.8-1.8); Bilirubin, Total 1.8 mg/dL (0.1-1.0); Calcium, Blood 8.9 mg/dL (8.5-10.1); Creatinine, Blood 0.47 mg/dL (0.40-1.00); Globulin, Blood 3.4 g/dL (2.2-4.0); Potassium, Blood 4.2 mmol/L (3.5-5.5); Total Protein, Blood 5.7 g/dL (6.4-8.2)
--- NOTE | 2021-12-02 18:31 | NUR ---
SHIFT SUMMARY: C/O SEVERE PAIN IN R ARM AND RLE; MEDICATED PER EMAR. BRIEFLY LOST IV ACCESS; PROVIDER ORDERED HOME MEDS NORCO AND GABAPENTIN TO HELP WITH PAIN. PAIN BETTER MANAGED BY THE END OF THE SHIFT. INCONTINENT OF B&B, WEARING ATTENDS. ALERT TO SELF AND FAMILY. SKIN INTACT, SEVERE BRUISING ON RUE AND RLE. APPETITE IS POOR. HAD VISIT FROM HER MOTHER AND NIECE TODAY.
--- NOTE | 2021-12-03 05:15 | NUR ---
SHIFT SUMMARY AOX1-SELF ONLY. UNABLE TO ANSWER REST OF ORIENTATION QUESTIONS, CONFUSED. WHEN ASKED WHERE SHE IS, PT STATED LAST NAME. CAN FOLLOW MINIMAL SIMPLE DIRECTIONS, HOWEVER FALLS ASLEEP WHILE TALKING AT BEGINNING OF SHIFT & IS VERY DROWSY. VSS. DENIED ANY PAIN UNTIL THIS AM SHE REPORTED "I HURT" MEDICATED 1X c 1MG DILAUDID & PT ABLE TO REST COMFORTABLY. CHANGED & REPOSITIONED PRN. R ARM, R LEG IN BRACE, PT UNABLE TO MOVE R EXTREMITIES. RLE +3 PITTING EDEMA, +1 LLE, ELEVATED ON PILLOW. CALL LIGHT IN REACH, WILL MONITOR.
[2021-12-03 05:41] LABS: BASOPHILS ABSOLUTE AUTO 0.08 K/mm3 (0.00-0.23); BASOPHILS PERCENT AUTO 1 % (0-2); EOSINOPHILS ABSOLUTE AUTO 0.88 K/mm3 (0.00-0.68); EOSINOPHILS PERCENT AUTO 10 % (0-6); IMMATURE GRAN ABSOLUTE AUTO 0.06 K/mm3 (0.00-0.10); IMMATURE GRAN PERCENT AUTO 1 % (0-1); LYMPHOCYTES ABSOLUTE AUTO 1.21 K/mm3 (0.84-5.20); LYMPHOCYTES PERCENT AUTO 14 % (21-46); MONOCYTES ABSOLUTE AUTO 0.78 K/mm3 (0.16-1.47); MONOCYTES PERCENT AUTO 9 % (4-13); Mean Corpuscular HGB 30.1 pg (26.0-34.0); Mean Corpuscular HGB Conc 32.4 g/dL (31.5-36.5); Mean Corpuscular Volume 93 fL (80-100); Mean Platelet Volume 9.7 fL (9.1-12.4); NEUTROPHILS ABSOLUTE AUTO 5.69 K/mm3 (1.96-9.15); NEUTROPHILS PERCENT AUTO 65 % (41-73); Platelet Count 207 K/mm3 (150-400); RDW Coefficient Variation 14.2 % (11.7-14.2); RDW Standard Deviation 47.5 fL (35.1-46.3); Red Blood Cell Count 3.65 M/mm3 (3.80-5.20)
[2021-12-03 06:12] LABS: Albumin, Blood 2.2 g/dL (3.4-5.0); Albumin/Globulin Ratio 0.7 (0.8-1.8); Bilirubin, Total 1.6 mg/dL (0.1-1.0); Bun/Creatinine Ratio 44.7 (12.0-20.0); Calcium, Blood 8.5 mg/dL (8.5-10.1); Creatinine, Blood 0.47 mg/dL (0.40-1.00); Globulin, Blood 3.3 g/dL (2.2-4.0); Total Protein, Blood 5.5 g/dL (6.4-8.2)
--- NOTE | 2021-12-03 19:33 | NUR ---
SHIFT SUMMARY: NO ACUTE EVENTS. A&O X 1, WAS IN BETTER SPIRITS TODAY. PUREWICK PLACED TO MEASURE URINE OUTPUT. STILL ECCHYMOTIC ON BUE AND RLE. MEDICATED FOR PAIN X 1, WITH GOOD EFFECT. TOLERATING PO INTAKE. STILL NO BM, BOWEL MEDS GIVEN. PHYSICAL THERAPY ATTEMPTED TO EVALUATE BUT PT DID NOT PARTICIPATE AND SHE IS LIKELY NOT A GOOD REHAB CANDIDATE.
[2021-12-04 05:24] LABS: BASOPHILS ABSOLUTE AUTO 0.07 K/mm3 (0.00-0.23); BASOPHILS PERCENT AUTO 1 % (0-2); EOSINOPHILS ABSOLUTE AUTO 0.75 K/mm3 (0.00-0.68); EOSINOPHILS PERCENT AUTO 9 % (0-6); Hematocrit 32.6 % (33.0-51.0); Hemoglobin 10.4 g/dL (11.5-16.0); IMMATURE GRAN ABSOLUTE AUTO 0.06 K/mm3 (0.00-0.10); IMMATURE GRAN PERCENT AUTO 1 % (0-1); LYMPHOCYTES ABSOLUTE AUTO 1.75 K/mm3 (0.84-5.20); LYMPHOCYTES PERCENT AUTO 20 % (21-46); MONOCYTES ABSOLUTE AUTO 0.85 K/mm3 (0.16-1.47); MONOCYTES PERCENT AUTO 10 % (4-13); Mean Corpuscular HGB 30.2 pg (26.0-34.0); Mean Corpuscular HGB Conc 31.9 g/dL (31.5-36.5); Mean Corpuscular Volume 95 fL (80-100); Mean Platelet Volume 9.7 fL (9.1-12.4); NEUTROPHILS PERCENT AUTO 60 % (41-73); Platelet Count 207 K/mm3 (150-400); RDW Coefficient Variation 14.6 % (11.7-14.2); RDW Standard Deviation 48.7 fL (35.1-46.3); Red Blood Cell Count 3.44 M/mm3 (3.80-5.20); White Blood Cell Count 8.58 K/mm3 (4.00-11.30)
--- NOTE | 2021-12-04 05:48 | NUR ---
SHIFT SUMMARY MORE ALERT & AWAKE TONIGHT THEN PREVIOUS NIGHT. AOX1-SELF ONLY. SMILES/SMIRKS FREQUENTLY WHEN I ASK QUESTIONS HOWEVER UNABLE TO RESPOND. WAS ABLE TO STATE "I HURT" 2X AFTER REPOSITIONING, MEDICATED 1X c NORCO & 1X c 1MG IV DILAUDID & PT ABLE TO REST COMFORTABLY AGAIN. REPOSITIONED FREQUENTLY. NO BM THIS SHIFT. PUREWICK IN PLACE, SM [place] DARK ORANGE, MARIA [place] CARMEN URINE IN CANISTER. ENCOURAGED PT TO DRINK MORE PO FLUIDS. CALL LIGHT & BED ALARM IN PLACE, WILL MONITOR.
[2021-12-04 05:56] LABS: Albumin/Globulin Ratio 0.7 (0.8-1.8); Bilirubin, Total 1.2 mg/dL (0.1-1.0); Calcium, Blood 8.6 mg/dL (8.5-10.1); Creatinine, Blood 0.45 mg/dL (0.40-1.00); Potassium, Blood 3.9 mmol/L (3.5-5.5)
--- NOTE | 2021-12-04 19:23 | NUR ---
SHIFT SUMMARY: NO ACUTE EVENTS. C/O PAIN, MORE GENERALIZED TODAY; MEDICATED PER EMAR WITH GOOD EFFECT, BUT CRIES IN PAIN WHEN FAMILY IS IN THE ROOM. PHYSICAL THERAPY TRIED AGAIN TO EVALUATE PT BUT SHE WAS NOT COOPERATIVE. A&O TO SELF AND FAMILY, WAS MORE ALERT AND IN BETTER SPIRITS THIS MORNING. APPETITE IS OK, NOT DRINKING MUCH. URINE APPEARS CONCENTRATED, DARK YELLOW/MARIA [place] CARMEN. STILL NO BM TODAY. GAVE EVA NELSON TELEPHONE UPDATE THIS AFTERNOON.
--- NOTE | 2021-12-05 05:26 | NUR ---
SHIFT SUMMARY AOX1-SELF, FOLLOWING DIRECTIONS. MORE AWAKE, ALERT & ABLE TO RESPOND APPROPRIATE TO QUESTIONS TONIGHT. PLEASENT & COOPERATIVE. REPORTS PAIN 1X, STATES "I HURT", MEDICATED c NORCO 1X & PT ABLE TO REST WELL T/O NIGHT. VSS. DENIES N/V OR DYSPNEA. R ARM FX & R LEG FX IN SLING, BRACE-BRUISING SCATTERED T/O R EXTREMITIES. + 2 EDEMA RLE, +1 LLE. PROVIDED BOWEL CARE MEDS SINCE NO BM REPORTED IN A FEW DAYS. CALL LIGHT IN REACH. WILL MONITOR.
--- NOTE | 2021-12-05 19:31 | NUR ---
SUMMARY- PT BEDBOUND. UP TO SIDE OF BED WITH PT/OT TODAY WITH MULT QUES- PT LACKS MOTIVATION OF COGNITION TO BE ABLE TO PERFORM SEQUENCED TASKS. TOLERATING FOOD, FEEDS SELF, ONLY DRINKS MIN FLUIDS. PUREWIC ONLY PUT OUT 150ML THIS SHIFT. PT HAS PAIN IN R ARM AND R LEG. MEDICATED WITH VICODIN APPROX Q4. EXPRESSIVE APHASIA, PELASANTLY CONFUSED. BEDBATH TODAY. SKIN INTACT. BRUISING TO R LEG, ARM AND FACIAL. EDEMA AND SWELLING R LEG. CMS INTACT, ALTHOUGH BASILINE IS DECREASED MOVEMENT IN R LEG RELATED TO PREV CVA. REPORTED TO NOC CATHLEEN.
--- NOTE | 2021-12-06 04:36 | NUR ---
SHIT SUMMARY AOX2-SELF, FOLLOWING DIRECTIONS, SITUATION, FAMILY. UNABLE TO STATE DATE OR PLACE R/T EXPRESSIVE APHASIA & CONFUSION. PT IS MORE ALERT & ABLE TO INFORM STAFF OF NEEDS. SMILES, PLEASENT, COOPERATIVE, NODS YES OR NO TO QUESTIONS IF SHE CANT USE WORDS & GETS FRUSTRATED WHEN SHE CANT STATE THE CORRECT WORD. STATES "I HURT" "OWE, PAINFUL" & POINTS TO R ARM, MEDICATED 1X c 1MG IV DILAUDID & 1X c 2 TAB NORCO, PT ABLE TO REST WELL. VSS. DENIES N/V OR DYSPNEA. REPOSITIONED PRN. PUREWICK IN PLACE, DARK [place]MEN URINE IN CANISTER-ENCOURAGED PT TO DRINK MORE. GAVE MIRALAX, SENNA, PRUNE JUICE & STILL NO BM THIS SHIFT. R ARM IN SLING, VERY BRUISED. RLE IN BRACE, VERY BRUISED c NONPITTING EDEMA, HOWEVER HAS +3 PEDAL/ANKLE EDEMA. CALL LIGHT IN REACH & PT ABLE TO USE APPROPRIATE WHEN SHE NEEDS HELP, WILL MONITOR.
[2021-12-06 07:08] LABS: BASOPHILS ABSOLUTE AUTO 0.05 K/mm3 (0.00-0.23); BASOPHILS PERCENT AUTO 1 % (0-2); EOSINOPHILS ABSOLUTE AUTO 0.89 K/mm3 (0.00-0.68); EOSINOPHILS PERCENT AUTO 11 % (0-6); Hematocrit 32.6 % (33.0-51.0); Hemoglobin 10.7 g/dL (11.5-16.0); IMMATURE GRAN ABSOLUTE AUTO 0.05 K/mm3 (0.00-0.10); IMMATURE GRAN PERCENT AUTO 1 % (0-1); LYMPHOCYTES ABSOLUTE AUTO 1.33 K/mm3 (0.84-5.20); LYMPHOCYTES PERCENT AUTO 17 % (21-46); MONOCYTES ABSOLUTE AUTO 0.78 K/mm3 (0.16-1.47); MONOCYTES PERCENT AUTO 10 % (4-13); Mean Corpuscular HGB 30.9 pg (26.0-34.0); Mean Corpuscular HGB Conc 32.8 g/dL (31.5-36.5); Mean Corpuscular Volume 94 fL (80-100); Mean Platelet Volume 9.7 fL (9.1-12.4); NEUTROPHILS ABSOLUTE AUTO 4.78 K/mm3 (1.96-9.15); NEUTROPHILS PERCENT AUTO 61 % (41-73); Platelet Count 230 K/mm3 (150-400); RDW Coefficient Variation 14.7 % (11.7-14.2); RDW Standard Deviation 49.6 fL (35.1-46.3); Red Blood Cell Count 3.46 M/mm3 (3.80-5.20); White Blood Cell Count 7.88 K/mm3 (4.00-11.30)
[2021-12-06 07:34] LABS: Bun/Creatinine Ratio 33.8 (12.0-20.0); Calcium, Blood 8.7 mg/dL (8.5-10.1); Creatinine, Blood 0.47 mg/dL (0.40-1.00); Potassium, Blood 4.1 mmol/L (3.5-5.5)
--- NOTE | 2021-12-06 18:44 | NUR ---
SUMMARY- PT A/O TO SELF AND PLACE. HX CVA WITH PRE-EXHISTING R WEAKNESS AND EXPRESSIVE APHASIA. BEDRIDDEN, ROUTINE TURNS. NWV RUE AND RLE. RUE IN SLING AND RLE IN IMMOBILIZER. SWELLING IN RLE +3 EDEMA, PITTING IN FOOT. ABLE TO WIGGLE TOES, HAS WEAK PULSE, CMS INTACT. RUE EXTREME SWELLING +3 WITH HEMATOMA. PT HAVING SEVERE PAIN. ATTEMPTED TO CHANGE FROM HYDRACODONE TO OXY AND TORADOL. STILL STATES PAIN IN THE 8-10 RANGE AND FREQ MOANING. PUREWICK FOR INCONT VOID. ABLE TO SIT AT EDGE OF BED WITH PT/OT AND RN ASSIST AND LEG TOUTCHED THE GROUND. LIMITED RELATED TO PAIN AND PT COGNITION. GIVEN MIRILAX THIS AM AND MILK OF MAG MID SHIFT TO STIM BM, NO BM SINCE ADMIT. WILL REPORT TO JOSEFINA RN.
--- NOTE | 2021-12-07 04:33 | NUR ---
SHIFT SUMMARY PT WITH EXPRESSIVE APHASIA AND CONFUSION. PT IS PLEASANT AND CONFUSED. PT COMPLAINED OF PAIN EARLIER TONIGHT. PT WAS GIVEN PAIN MEDS PRIOR TO CHILD WELFARE CONSULTANT ARRIVAL. PT GIVEN TYLENOL LAST EVENING. PT HAS BEEN ASLEEP SINCE. NO COMPLAINTS AT THIS TIME AND CALL LIGHT WITHIN HER REACH.
--- NOTE | 2021-12-07 18:10 | NUR ---
SHIFT SUMMARY- PT IS ALERT, PLESANT AND CONFUSED. SHE DID NOT WANT TO EAT LUNCH THIS AFTERNOON. SHE HAD A BOWEL MOVMENT THIS SHIFT. SHE SLEPT INTERMITENTLY. HER BED IS IN THE LOW POSITION AND CALL LIGHT IS WITIN REACH.
--- NOTE | 2021-12-08 03:54 | NUR ---
STUMMEL SELECTOR SUMMARY AWAKE AT INTERVALS. REFUSED HS MEDS, ADAMANT NOT TO TAKE THEM. TRIED TO REFUSE VITAL SIGNS BUT AFTER SOME ENCOURAGEMENT, CAPITULATED. HOB REMAINS ELEVATED. SLING OF RIGHT ARM INTACT. INCONT AND CHANGED. REORIENTED TO TIME A FEW TIMES SHE WANTED LUNCH AND WAS UPSET WHEN SHE WAS INFORMED IT WAS AROUND MIDNIGHT. PAIN MEDS FOR ARM DISCOMFORT. WILL CONTINUE TO REORIENT NEEDED. CALL LIGHT IN REACH.
[2021-12-08 14:05] LABS: SARS-Cov-2 (COVID-19) PCR, MMC NEGATIVE (NEGATIVE)
[2021-12-08] MEDS ORDERED: NAPR500 PO (15:39)
[2021-12-08] MEDS ORDERED: OXYC5 PO (15:41)
[2021-12-08] MEDS ORDERED: MIRALAX17 GM PO (15:44)
--- NOTE | 2021-12-08 17:48 | NUR ---
PT DISCHARGED FROM THE UNIT. IV REMOVED. REPORT CALLED TO AYDEN CONNOLLY AT [facility]. LEFT WITH TRANSPORT VIA [facility]
== END 2021-12-08 15:40 ==
LOC: ER 16:16 → MEDS 16:17 → SURS 16:17 → MEDS 23:02 → ER 23:02 → SURS 23:02 → MEDS 23:02 → SURS 23:14 → MEDS 23:14
PROVIDERS: Family Medicine; ADMIT Internal Medicine
DX: S82.101A Unspecified fracture of upper end of right tibia, initial encounter for closed fracture (principal); S82.831A Other fracture of upper and lower end of right fibula, initial encounter for closed fracture; W19.XXXA Unspecified fall, initial encounter; Z88.4 Allergy status to anesthetic agent; Z91.09 Other allergy status, other than to drugs and biological substances; Z79.82 Long term (current) use of aspirin; I10 Essential (primary) hypertension; Z86.73 Personal history of transient ischemic attack (TIA), and cerebral infarction without residual deficits; S42.291A Other displaced fracture of upper end of right humerus, initial encounter for closed fracture; F01.50 Vascular dementia, unspecified severity, without behavioral disturbance, psychotic disturbance, mood disturbance, and anxiety; E80.6 Other disorders of bilirubin metabolism; Z20.822 Contact with and (suspected) exposure to COVID-19
CPT/HCPCS: 29505; 36415; 72170; 73552; 73590; 73700; 76705; 80048; 80053; 85025; 85027; 96372; 96374-59; 96375; 96376; 97110; 97162; 97166; 97530; 97535; 99285-25; A9270; G0378; J1170; J1650; J1885; J2270; U0004

== ENCOUNTER 2022-07-15 18:07 | Emergency (ER) | payer MEDICARE, OTHER ==
[~2022-07-15] VITALS: Ht 167.6 cm; Wt 122.5 kg
[~2022-07-15 18:07] MED LIST changes: +ACET325 PO; +DISU250 PO; +MIRALAX17 GM PO; +MYLANTA MAXIMUM10 ML PO; +NAPR500 PO; +OXYC5 PO
[2022-07-15 20:10] VITALS: BP 147/65
[2022-07-15] MEDS ORDERED: IBUP600 PO (20:12)
== END 2022-07-15 21:15 | disposition home or self-care (01) ==
LOC: ER 18:07
DX: S90.01XA Contusion of right ankle, initial encounter (principal); W22.8XXA Striking against or struck by other objects, initial encounter; Z88.5 Allergy status to narcotic agent; Z88.8 Allergy status to other drugs, medicaments and biological substances; Z88.1 Allergy status to other antibiotic agents; Z79.899 Other long term (current) drug therapy; Z79.82 Long term (current) use of aspirin; I10 Essential (primary) hypertension; E78.5 Hyperlipidemia, unspecified; Z87.891 Personal history of nicotine dependence
CPT/HCPCS: 73610; 99283-25; A9270

== ENCOUNTER 2023-08-27 15:42 | Emergency (ER) | payer MEDICARE, OTHER ==
[~2023-08-27] VITALS: Ht 170.2 cm; Wt 119.3 kg
[2023-08-27 15:42] VITALS: BP 132/71
[2023-08-27] MEDS ORDERED: Tetanus and Diphtheria Toxoid 0.5 ML INJ IM ONE (16:50)
[2023-08-27] MEDS ORDERED: FentaNYL Citrate 50 MCG/ML 2 ML Injection IV ONE ×2 (16:50→17:25)
== END 2023-08-27 18:20 | disposition home or self-care (01) ==
LOC: ER 15:42
DX: S01.81XA Laceration without foreign body of other part of head, initial encounter (principal); S40.011A Contusion of right shoulder, initial encounter; S70.01XA Contusion of right hip, initial encounter; W05.0XXA Fall from non-moving wheelchair, initial encounter
CPT/HCPCS: 12002; 70450; 72125; 73030; 73502; 90471; 90714; 96374-59; 96376-59; 99284-25; J3010

== ENCOUNTER 2023-09-22 10:57 | Inpatient (IN) | payer MEDICARE, OTHER ==
[~2023-09-22] VITALS: Ht 170.2 cm; Wt 120.0 kg
[~2023-09-22 10:57] MED LIST changes: +Prozac20 MG PO; -Prozac40 MG PO
[2023-09-22] MEDS ORDERED: FentaNYL Citrate 50 MCG/ML 2 ML Injection IV ONE (11:30)
[2023-09-22 11:53] LABS: BASOPHILS ABSOLUTE AUTO 0.05 K/mm3 (0.00-0.23); BASOPHILS PERCENT AUTO 0 % (0-2); EOSINOPHILS ABSOLUTE AUTO 0.01 K/mm3 (0.00-0.68); EOSINOPHILS PERCENT AUTO 0 % (0-6); Hematocrit 47.6 % (33.0-51.0); Hemoglobin 16.2 g/dL (11.5-16.0); IMMATURE GRAN ABSOLUTE AUTO 0.25 K/mm3 (0.00-0.10); IMMATURE GRAN PERCENT AUTO 1 % (0-1); LYMPHOCYTES ABSOLUTE AUTO 1.59 K/mm3 (0.84-5.20); LYMPHOCYTES PERCENT AUTO 5 % (21-46); MONOCYTES ABSOLUTE AUTO 2.29 K/mm3 (0.16-1.47); MONOCYTES PERCENT AUTO 8 % (4-13); Mean Corpuscular HGB 29.9 pg (26.0-34.0); Mean Corpuscular Volume 88 fL (80-100); Mean Platelet Volume 9.9 fL (9.1-12.4); NEUTROPHILS ABSOLUTE AUTO 26.11 K/mm3 (1.96-9.15); NEUTROPHILS PERCENT AUTO 86 % (41-73); Platelet Count 199 K/mm3 (150-400); RDW Coefficient Variation 14.1 % (11.7-14.2); RDW Standard Deviation 45.5 fL (35.1-46.3); Red Blood Cell Count 5.42 M/mm3 (3.80-5.20)
[2023-09-22 12:05] LABS: Source, Urine Straight Cath
[2023-09-22 12:13] LABS: Albumin, Blood 2.5 g/dL (3.4-5.0); Albumin/Globulin Ratio 0.6 (0.8-1.8); Bun/Creatinine Ratio 32.2 (12.0-20.0); Calcium, Blood 8.6 mg/dL (8.5-10.1); Creatinine, Blood 0.47 mg/dL (0.40-1.00); Globulin, Blood 4.2 g/dL (2.2-4.0); Potassium, Blood 3.8 mmol/L (3.5-5.5); Total Protein, Blood 6.7 g/dL (6.4-8.2)
[2023-09-22] MEDS ORDERED: Ciprofloxacin 400MG/D5 200ML 200 ML IV ONE (12:20)
[2023-09-22] MEDS ORDERED: MetroNIDAZOLE 500MG/NS 100 ml 100 ML IV ONE (12:20)
[2023-09-22] MEDS ORDERED: NS 1,000 ML IV SCH ×5 (12:20→19:00)
[2023-09-22 12:32] LABS: Blood, Urine 5+ (Neg); Glucose Qualitative, Urine Neg (Neg); Ketones, Urine 2+ (Neg); Leukocyte Esterase, Urine 3+ (Neg); Nitrite, Urine Pos (Neg); Protein, Urine 3+ (Neg); Urobilinogen, Urine 3+ (Normal); pH, Urine 6.5 (5.0-8.0)
[2023-09-22 13:02] LABS: Appearance, Urine Hazy (Clear); Bilirubin, Urine 2+ (Neg); Color, Urine Amber (P-Yellow)
[2023-09-22 13:03] LABS: Amorphous Heavy (0-Heavy); Bacteria Many /hpf
[2023-09-22 13:04] LABS: White Blood Cells, Urine 25-50 /hpf (0-5)
[2023-09-22 13:05] LABS: Mucus Heavy (0-Heavy); Red Blood Cells, Urine 0-2 /hpf (0-2); Squamous Epithelial Cells Many /hpf (Few)
[2023-09-22] MEDS ORDERED: Morphine Sulfate 4 MG/1 ML Injection IV ONE (15:20)
[2023-09-22] MEDS ORDERED: Cefepime HCl 2,000 MG in NS 100 ML IV SCH (18:00)
[2023-09-22] MEDS ORDERED: MetroNIDAZOLE 500MG/NS 100 ml 100 ML IV SCH (18:00)
[2023-09-22] MEDS ORDERED: FentaNYL Citrate 50 MCG/ML 2 ML Injection IV PRN (18:20)
[2023-09-22] MEDS ORDERED: HydrALAZINE HCl 20 MG / ML 1ML Vial IV PRN (18:20)
[2023-09-22 18:41] VITALS: BP 149/80
--- NOTE | 2023-09-22 19:30 | NUR ---
PT TRANSFERED TO PCU 11 FROM THE ER AT ABOUT 1830. REPORT FROM JANIE Otero RN. PT SLID OVER TO THE BED FROM [facility] WITH 4 PERSON MAX ASSIST. SP02 >93% ON RA, LUNG SOUNDS CLEAR BUT DIMINISHED AT THE BASES. ON TELE SHE IS SR, BP STABLE. THE PT HAS HX OF CVA AND CHRONIC RIGHT SIDED DEFICITS. APHASIA NOTED, AND PT IS ABLE TO SAY 1-2 WORDS AT A TIME. SHE WAS C/O PAIN IN HER ABD AND WAS MEDICATED PER EMAR. FLUIDS AND ANTIBIOTICS STARTED PER EMAR. A SECONDARY IV WAS STARTED IN THE PT'S LFA BY DROSS SKIMMER. JAIME Chapman RN ASSUMED CARE OF THE PT D/T SHIFT CHANGE.
[2023-09-22 19:37] VITALS: BP 180/88
[2023-09-22 21:10] VITALS: BP 158/89
--- NOTE | 2023-09-22 22:22 | NUR ---
PT IS ALERT AND ORIENTED TO SELF. HER SPEECH IS LIMITED BY APHASIA FROM PRIOR STROKE. SHE HAS HX OF HEMIPLEGIA AND HEMIPHARESIS AFFECTING R SIDE OF BODY. PT ABLE TO COMMUNICATE WITH SOME WORDS AND GESTURES. SHE IS ON RA AND MAINTAINING 02 SATURATION ABOVE 92%, SHE DENIES SOB. HR SR/ST, SHE DENIES CHEST PAIN/PRESSURE, BP STABLE. PT C/O R SIDE ABD PAIN AND MEDICATED PER EMAR. PW AND ATTENDS IN PLACE, CHANGED PRN. IV'S TO L HAND AND L FA PATENT, FLUSHED, SALINE LOCKED. PT RECEIVED 1600ML'S NS PER ORDERS THIS SHIFT. OF NOW, PLAN IS FOR PT TO TRANSFER TO ANOTHER HOSPITAL FOR ERCP. CHARGE NURSE SAID HE SPOKE WITH [facility] AND THEY SAID THAT NOWHERE IN THE STATE HAS ANY BEDS OPEN TONIGHT AND THEY WILL CALL BACK IN THE MORNING. PT RESTING IN BED AND CALL LIGHT WITHIN REACH.
[2023-09-22] MEDS ORDERED: HYDROcodone 5-APAP 325 TAB PO PRN (23:20)
[2023-09-22 23:50] VITALS: BP 157/79
--- NOTE | 2023-09-22 23:53 | NUR ---
PT HAS BEEN UNCOMFORTABLE AND QUITE PAINFUL DESPITE BEING MEDICATED PER ORDERS. NOTIFIED MD AND NEW ORDERS PLACED. PT MEDICATED PER EMAR.
[2023-09-23 04:06] VITALS: BP 151/86
[2023-09-23 04:27] LABS: BASOPHILS ABSOLUTE AUTO 0.11 K/mm3 (0.00-0.23); BASOPHILS PERCENT AUTO 1 % (0-2); EOSINOPHILS ABSOLUTE AUTO 0.01 K/mm3 (0.00-0.68); EOSINOPHILS PERCENT AUTO 0 % (0-6); Hematocrit 45.3 % (33.0-51.0); Hemoglobin 15.1 g/dL (11.5-16.0); IMMATURE GRAN ABSOLUTE AUTO 0.11 K/mm3 (0.00-0.10); IMMATURE GRAN PERCENT AUTO 1 % (0-1); LYMPHOCYTES ABSOLUTE AUTO 0.64 K/mm3 (0.84-5.20); LYMPHOCYTES PERCENT AUTO 3 % (21-46); MONOCYTES PERCENT AUTO 6 % (4-13); Mean Corpuscular HGB 29.5 pg (26.0-34.0); Mean Corpuscular HGB Conc 33.3 g/dL (31.5-36.5); Mean Corpuscular Volume 89 fL (80-100); Mean Platelet Volume 10.2 fL (9.1-12.4); NEUTROPHILS ABSOLUTE AUTO 17.56 K/mm3 (1.96-9.15); NEUTROPHILS PERCENT AUTO 89 % (41-73); Platelet Count 178 K/mm3 (150-400); RDW Coefficient Variation 14.3 % (11.7-14.2); RDW Standard Deviation 46.5 fL (35.1-46.3); Red Blood Cell Count 5.11 M/mm3 (3.80-5.20); White Blood Cell Count 19.63 K/mm3 (4.00-11.30)
[2023-09-23 04:58] LABS: Albumin, Blood 2.2 g/dL (3.4-5.0); Albumin/Globulin Ratio 0.6 (0.8-1.8); Bilirubin, Total 4.9 mg/dL (0.1-1.0); Bun/Creatinine Ratio 31.8 (12.0-20.0); Calcium, Blood 8.2 mg/dL (8.5-10.1); Creatinine, Blood 0.41 mg/dL (0.40-1.00); Potassium, Blood 3.4 mmol/L (3.5-5.5); Total Protein, Blood 6.2 g/dL (6.4-8.2)
--- NOTE | 2023-09-23 05:49 | NUR ---
PT'S PAIN BETTER MANAGED AND SHE HAS BEEN SLEEPING WITH UNLABORED AND EVEN BREATHING. BP STABLE. NO ACUTE CHANGES SINCE PREVIOUS NOTE. CALL LIGHT WITHIN REACH.
[2023-09-23 08:24] VITALS: BP 125/83
[2023-09-23] MEDS ORDERED: Heparin Sodium,Porcine 5,000 UNIT/0.5 ML SDV SC SCH (09:00)
[2023-09-23] MEDS ORDERED: FLUoxetine HCl 10 MG Cap PO SCH (09:00)
[2023-09-23 11:59] VITALS: BP 140/78
[2023-09-23] MEDS ORDERED: HYDROmorphone HCl/Pf 1MG SYR IV PRN (15:25)
[2023-09-23 15:28] VITALS: BP 143/71
[2023-09-23] MEDS ORDERED: NS 1,000 ML IV SCH (15:40)
[2023-09-23 16:08] VITALS: BP 143/71
--- NOTE | 2023-09-23 16:27 | NUR ---
SHIFT SUMMARY NO MAJOR CHANGES THROUGHOUT SHIFT. PATIENT MEDICATED FOR PAIN PER EMAR, CHANGED FENTANYL TO DILAUDID PER DR. MITCHELL FOR BETTER PAIN CONTROL. PATIENT SLEPT OFF AND ON T/O SHIFT. ABLE TO MAKE NEEDS KNOWN TO STAFF. OCCASSIONAL EXPRESSIVE APHASIA, BUT ABLE TO CLARIFY WITH STAFF. VSS. PUREWICK IN PLACE WITH LOW URINE OUTPUT. NO BM THIS SHIFT. TRANSFER TO [facility] PENDING.
--- NOTE | 2023-09-23 17:12 | NUR ---
REPORT GIVEN TO CATHLEEN LOREDO @ [facility].
== END 2023-09-23 17:53 | disposition short-term general hospital (02) | DRG 445 ==
LOC: ER 10:57 → PCU 17:25
PROVIDERS: Emergency Medicine; ADMIT Internal Medicine
DX: K80.42 Calculus of bile duct with acute cholecystitis without obstruction (principal); F01.53 Vascular dementia, unspecified severity, with mood disturbance; F01.54 Vascular dementia, unspecified severity, with anxiety; I69.351 Hemiplegia and hemiparesis following cerebral infarction affecting right dominant side; N39.0 Urinary tract infection, site not specified; E78.5 Hyperlipidemia, unspecified; I10 Essential (primary) hypertension; Z51.5 Encounter for palliative care; Z66 Do not resuscitate; K21.9 Gastro-esophageal reflux disease without esophagitis; F32.9 Major depressive disorder, single episode, unspecified; I69.320 Aphasia following cerebral infarction; Z90.49 Acquired absence of other specified parts of digestive tract; Z88.8 Allergy status to other drugs, medicaments and biological substances; Z88.0 Allergy status to penicillin; Z88.5 Allergy status to narcotic agent; Z79.82 Long term (current) use of aspirin; Z87.891 Personal history of nicotine dependence
CPT/HCPCS: 36415; 74177; 80053; 81001; 83605; 83690; 85025; 96365; 96366; 96367; 96375; 99285-25; A9270; J0692; J0744; J1170; J1644; J2270; J3010; J7030; P9612; Q9967